=== PATIENT | male | born 1965 | race Caucasian/White ===

== ENCOUNTER 2020-03-20 01:52 | Inpatient (IN) | payer MEDICAID ==
[~2020-03-20] VITALS: Ht 195.6 cm; Wt 88.6 kg
--- NOTE | 2020-03-20 03:23 | NUR ---
PATIENT HIT CALL LIGHT. ASKED FOR WATER WITH ICE. WATER WITH ICE PROVIDED TO PATIENT. PATIENT GIVEN WARM BLANKETS. LIGHTS DIMMED. CALL LIGHT WITHIN REACH. NO NOTED ADDITIONAL NEEDS. WILL CONTINUE TO MONITOR.
[2020-03-20 03:55] VITALS: BP 156/92
[2020-03-20] MEDS ORDERED: VANCOMYCIN PER PHARMACY MC PRN (05:30)
[2020-03-20] MEDS: NICOTINE 14MG/24 HR PATCH.TD24 TD SCH (05:30)
[2020-03-20] MEDS ORDERED: ONDANSETRON 2MG/ML, 2ML IVPush PRN (05:30)
[2020-03-20] MEDS ORDERED: LABETALOL 5MG/ML, 20ML IVPush PRN (05:30)
[2020-03-20] MEDS ORDERED: GABAPENTIN 300 MG CAPSULE PO PRN (05:30)
[2020-03-20 05:49] VITALS: BP 129/95
[2020-03-20] MEDS ORDERED: PHARMACOKINETIC MONITORING MC PRN ×2 (06:00→08:00)
[2020-03-20] MEDS: PIPERACILLIN/TAZO/PMX 3.375GM 50 ML IV SCH ×3 (06:22→18:12)
[2020-03-20] MEDS: morphine SULFATE 10 MG/ML, 1ML IVPush PRN ×2 (06:23→19:42)
[2020-03-20] MEDS: ENOXAPARIN 40 MG/0.4 ML SQ SCH (06:26)
[2020-03-20] MEDS: POTASSIUM CHLORIDE 20 MEQ, MAGNESIUM SULFATE 2 GM, THIAMINE 200 MG, MVI ADULT 10 ML, FO... IV SCH (07:09)
[2020-03-20 07:27] VITALS: BP 130/73
[2020-03-20] MEDS ORDERED: PHARMACOKINETIC CONSULTATION MC ONE (07:30)
[2020-03-20] MEDS ORDERED: VANCOMYCIN 1,600 MG in SODIUM CHLORIDE 0.9% 250 ML IV ONE (07:30)
[2020-03-20 08:49] LABS: BASOPHILS # (AUTO) 0.01 x10^3/uL (0-0.1); BASOPHILS % (AUTO) 0 % (0-1); EOSINOPHILS # (AUTO) 0.01 x10^3/uL (0-0.4); EOSINOPHILS % (AUTO) 0 % (1-7); LYMPHOCYTES # (AUTO) 0.72 x10^3/uL (1-3.4); LYMPHOCYTES % (AUTO) 7 % (22-44); MD NO; MEAN CORPUSCULAR HEMOGLOBIN 34.5 pg (27.5-34.5); MEAN CORPUSCULAR HGB CONC 32.7 g/dL (33.2-36.2); MEAN PLATELET VOLUME 8.9 fL (7.4-10.4); MONOCYTES # (AUTO) 0.45 x10^3/uL (0.2-0.8); MONOCYTES % (AUTO) 5 % (2-9); NEUTROPHILS # (AUTO) 8.51 x10^3/uL (1.8-6.8); NEUTROPHILS % (AUTO) 88 % (42-75); PLATELET COUNT 138 x10^3/uL (130-400); RED BLOOD COUNT 3.47 x10^6/uL (4.38-5.82); RED CELL DISTRIBUTION WIDTH 13.4 % (9.4-14.8)
[2020-03-20 08:51] LABS: HCT (SEDRATE) 36.6 % (39.2-51.8)
[2020-03-20 09:00] LABS: ALBUMIN 2.2 g/dL (3.4-5.0); ANION GAP 4 mmol/L (5-15); CALCIUM 7.7 mg/dL (8.5-10.1); CHLORIDE 98 mmol/L (98-107); CREATININE 0.75 mg/dL (0.7-1.3)
[2020-03-20 09:08] LABS: D-DIMER 6.82 ug/mlFEU (0.00-0.52); INTERNATIONAL NORMALIZED RATIO 1.35 (0.93-1.1); PROTHROMBIN TIME 14.4 Seconds (9.6-11.5)
[2020-03-20 09:19] LABS: ALANINE AMINOTRANSFERASE 2032 U/L (12-78); ALKALINE PHOSPHATASE 97 U/L (45-117); BILIRUBIN,TOTAL 0.9 mg/dL (0.2-1.0); TOTAL PROTEIN 6.2 g/dL (6.4-8.2)
[2020-03-20 13:21] VITALS: BP 119/74
[2020-03-20 18:43] VITALS: BP 123/80
[2020-03-20] MEDS ORDERED: CHLORDIAZEPOXIDE 25 MG CAPSULE PO PRN (19:30)
[2020-03-20] MEDS ORDERED: LORazepam 2 MG/ML, 1ML IVPush PRN (19:30)
[2020-03-20] MEDS: VANCOMYCIN 1,600 MG in SODIUM CHLORIDE 0.9% 250 ML IV SCH (22:11)
[2020-03-21] MEDS: PIPERACILLIN/TAZO/PMX 3.375GM 50 ML IV SCH ×4 (00:17→20:34)
[2020-03-21 00:24] VITALS: BP 123/70
[2020-03-21] MEDS: morphine SULFATE 10 MG/ML, 1ML IVPush PRN ×4 (03:57→20:41)
[2020-03-21] MEDS: NICOTINE 14MG/24 HR PATCH.TD24 TD SCH (03:59)
[2020-03-21] MEDS: ENOXAPARIN 40 MG/0.4 ML SQ SCH (06:02)
[2020-03-21 06:49] VITALS: BP 109/75
[2020-03-21] MEDS: POTASSIUM CHLORIDE 20 MEQ, MAGNESIUM SULFATE 2 GM, THIAMINE 200 MG, MVI ADULT 10 ML, FO... IV SCH (09:40)
[2020-03-21 10:49] LABS: CREATININE 0.79 mg/dL (0.7-1.3)
[2020-03-21] MEDS: VANCOMYCIN 1,600 MG in SODIUM CHLORIDE 0.9% 250 ML IV SCH ×2 (11:11→23:32)
[2020-03-21 13:24] VITALS: BP 112/80
[2020-03-21 18:52] VITALS: BP 113/75
[2020-03-22] MEDS: morphine SULFATE 10 MG/ML, 1ML IVPush PRN ×4 (00:55→21:24)
[2020-03-22 01:22] VITALS: BP 120/81
[2020-03-22] MEDS: PIPERACILLIN/TAZO/PMX 3.375GM 50 ML IV SCH ×4 (02:12→22:39)
[2020-03-22] MEDS: NICOTINE 14MG/24 HR PATCH.TD24 TD SCH (05:30)
[2020-03-22 05:52] LABS: CREATININE 0.76 mg/dL (0.7-1.3)
[2020-03-22] MEDS: ENOXAPARIN 40 MG/0.4 ML SQ SCH (06:14)
[2020-03-22 08:06] VITALS: BP 122/77
[2020-03-22 08:33] LABS: ALBUMIN 2.1 g/dL (3.4-5.0); ANION GAP 7 mmol/L (5-15); CALCIUM 8.6 mg/dL (8.5-10.1); CHLORIDE 105 mmol/L (98-107)
[2020-03-22 08:48] LABS: BASOPHILS # (AUTO) 0.03 x10^3/uL (0-0.1); BASOPHILS % (AUTO) 1 % (0-1); EOSINOPHILS % (AUTO) 4 % (1-7); HEMOGRAM NOTE RECHECKED; LYMPHOCYTES # (AUTO) 1.03 x10^3/uL (1-3.4); LYMPHOCYTES % (AUTO) 20 % (22-44); MD NO; MEAN CORPUSCULAR HEMOGLOBIN 34.5 pg (27.5-34.5); MEAN CORPUSCULAR HGB CONC 32.4 g/dL (33.2-36.2); MEAN PLATELET VOLUME 9.3 fL (7.4-10.4); MONOCYTES # (AUTO) 0.79 x10^3/uL (0.2-0.8); MONOCYTES % (AUTO) 15 % (2-9); NEUTROPHILS # (AUTO) 3.16 x10^3/uL (1.8-6.8); NEUTROPHILS % (AUTO) 61 % (42-75); PLATELET COUNT 187 x10^3/uL (130-400); RED CELL DISTRIBUTION WIDTH 13.7 % (9.4-14.8)
[2020-03-22 09:01] LABS: ALANINE AMINOTRANSFERASE 831 U/L (12-78); ALKALINE PHOSPHATASE 118 U/L (45-117); BILIRUBIN,TOTAL 0.6 mg/dL (0.2-1.0); CREATININE 0.82 mg/dL (0.7-1.3); TOTAL PROTEIN 5.8 g/dL (6.4-8.2)
[2020-03-22] MEDS: VANCOMYCIN 1,600 MG in SODIUM CHLORIDE 0.9% 250 ML IV SCH ×2 (11:07→23:32)
[2020-03-22 13:25] VITALS: BP 111/68
[2020-03-22] MEDS: POTASSIUM CHLORIDE 20 MEQ, MAGNESIUM SULFATE 2 GM, THIAMINE 200 MG, MVI ADULT 10 ML, FO... IV SCH (15:03)
[2020-03-22 20:52] VITALS: BP 106/66
[2020-03-22] MEDS: THIAMINE 100MG TABLET PO SCH (21:23)
[2020-03-23 00:29] VITALS: BP 124/74
[2020-03-23 04:57] LABS: CHLORIDE 104 mmol/L (98-107)
[2020-03-23 05:10] LABS: % IRON SATURATION 38 % (20-55); ALANINE AMINOTRANSFERASE 573 U/L (12-78); ALBUMIN 2.2 g/dL (3.4-5.0); ALKALINE PHOSPHATASE 122 U/L (45-117); ANION GAP 6 mmol/L (5-15); BILIRUBIN,TOTAL 0.5 mg/dL (0.2-1.0); CALCIUM 8.7 mg/dL (8.5-10.1); CREATINE KINASE, TOTAL 15 U/L (39-308); CREATININE 0.89 mg/dL (0.7-1.3); IRON LEVEL 110 mcg/dL (65-175); TOTAL IRON BINDING CAPACITY 289 mcg/dL (250-450)
[2020-03-23] MEDS: NICOTINE 14MG/24 HR PATCH.TD24 TD SCH (05:13)
[2020-03-23 05:21] LABS: BASOPHILS # (AUTO) 0.03 x10^3/uL (0-0.1); BASOPHILS % (AUTO) 1 % (0-1); EOSINOPHILS # (AUTO) 0.28 x10^3/uL (0-0.4); EOSINOPHILS % (AUTO) 5 % (1-7); LYMPHOCYTES # (AUTO) 1.33 x10^3/uL (1-3.4); LYMPHOCYTES % (AUTO) 24 % (22-44); MD NO; MEAN CORPUSCULAR HEMOGLOBIN 33.8 pg (27.5-34.5); MEAN CORPUSCULAR HGB CONC 31.9 g/dL (33.2-36.2); MEAN PLATELET VOLUME 8.8 fL (7.4-10.4); MONOCYTES % (AUTO) 20 % (2-9); NEUTROPHILS # (AUTO) 2.87 x10^3/uL (1.8-6.8); NEUTROPHILS % (AUTO) 51 % (42-75); PLATELET COUNT 205 x10^3/uL (130-400); RED CELL DISTRIBUTION WIDTH 13.9 % (9.4-14.8)
[2020-03-23] MEDS: morphine SULFATE 10 MG/ML, 1ML IVPush PRN ×3 (05:40→20:18)
[2020-03-23] MEDS: PIPERACILLIN/TAZO/PMX 3.375GM 50 ML IV SCH ×3 (05:40→18:16)
[2020-03-23] MEDS: ENOXAPARIN 40 MG/0.4 ML SQ SCH (05:40)
[2020-03-23 06:57] VITALS: BP 143/86
[2020-03-23] MEDS: THIAMINE 100MG TABLET PO SCH ×2 (09:14→20:14)
[2020-03-23] MEDS: FOLIC ACID 1 MG TABLET PO SCH (09:14)
[2020-03-23] MEDS: MULTIVITAMIN 1 TABLET PO SCH (09:14)
[2020-03-23] MEDS: VANCOMYCIN 1,600 MG in SODIUM CHLORIDE 0.9% 250 ML IV SCH ×2 (11:23→23:26)
[2020-03-23 13:23] VITALS: BP 144/80
[2020-03-23] MEDS ORDERED: OMNIPAQUE 350 MG/ML, 100ML BOTTLE ONE (18:09)
[2020-03-23 20:13] VITALS: BP 114/81
[2020-03-24] MEDS: morphine SULFATE 10 MG/ML, 1ML IVPush PRN ×2 (01:00→06:36)
[2020-03-24] MEDS: PIPERACILLIN/TAZO/PMX 3.375GM 50 ML IV SCH ×2 (01:00→06:35)
[2020-03-24 01:51] VITALS: BP 130/78
[2020-03-24 04:28] LABS: BASOPHILS # (AUTO) 0.04 x10^3/uL (0-0.1); BASOPHILS % (AUTO) 1 % (0-1); EOSINOPHILS # (AUTO) 0.36 x10^3/uL (0-0.4); EOSINOPHILS % (AUTO) 6 % (1-7); LYMPHOCYTES # (AUTO) 1.53 x10^3/uL (1-3.4); LYMPHOCYTES % (AUTO) 24 % (22-44); MD NO; MEAN CORPUSCULAR HEMOGLOBIN 34.3 pg (27.5-34.5); MEAN CORPUSCULAR HGB CONC 32.6 g/dL (33.2-36.2); MEAN PLATELET VOLUME 8.5 fL (7.4-10.4); MONOCYTES # (AUTO) 1.21 x10^3/uL (0.2-0.8); MONOCYTES % (AUTO) 19 % (2-9); NEUTROPHILS # (AUTO) 3.14 x10^3/uL (1.8-6.8); NEUTROPHILS % (AUTO) 50 % (42-75); PLATELET COUNT 246 x10^3/uL (130-400); RED BLOOD COUNT 3.83 x10^6/uL (4.38-5.82)
[2020-03-24 04:29] LABS: ANION GAP 7 mmol/L (5-15); CHLORIDE 100 mmol/L (98-107)
[2020-03-24 04:31] LABS: CREATININE 0.89 mg/dL (0.7-1.3)
[2020-03-24] MEDS: NICOTINE 14MG/24 HR PATCH.TD24 TD SCH (05:30)
[2020-03-24] MEDS: ENOXAPARIN 40 MG/0.4 ML SQ SCH (06:35)
[2020-03-24 07:53] VITALS: BP 122/73
[2020-03-24] MEDS: THIAMINE 100MG TABLET PO SCH (07:58)
[2020-03-24] MEDS: MULTIVITAMIN 1 TABLET PO SCH (07:58)
[2020-03-24] MEDS: FOLIC ACID 1 MG TABLET PO SCH (07:58)
[2020-03-24] MEDS ORDERED: MULT-449 PO (09:09)
[2020-03-24] MEDS ORDERED: THIA100T67 PO (09:09)
[2020-03-24] MEDS ORDERED: ACID1TAB7 PO (09:09)
[2020-03-24] MEDS ORDERED: FOLI-17 PO (09:09)
[2020-03-24] MEDS ORDERED: AMOX1TAB12 PO (09:09)
[2020-03-24] MEDS ORDERED: DOXY100T PO (09:09)
[2020-03-24] MEDS ORDERED: AMOXICILLIN/CLAV 875-125MG TABLET PO SCH (09:30)
[2020-03-24] MEDS ORDERED: DOXYCYCLINE 100MG TABLET PO SCH (09:30)
[2020-03-24] MEDS ORDERED: LACTOBACILLUS CHEW TABLET PO SCH (12:00)
== END 2020-03-24 09:38 | disposition home or self-care (01) | DRG 871 ==
LOC: ED 02:13 → EDIP 03:42 → 3N 03:50 → 4NW 05:39 → 4EST 03-21 17:45 → 4WST 03-23 16:01
PROVIDERS: ADMIT Family Medicine; ATTEND Internal Medicine
DX: A41.9 Sepsis, unspecified organism (principal); J18.9 Pneumonia, unspecified organism; L03.115 Cellulitis of right lower limb; E87.1 Hypo-osmolality and hyponatremia; D68.9 Coagulation defect, unspecified; C34.90 Malignant neoplasm of unspecified part of unspecified bronchus or lung; L03.114 Cellulitis of left upper limb; Z20.828 Contact with and (suspected) exposure to other viral communicable diseases; B18.2 Chronic viral hepatitis C; D53.9 Nutritional anemia, unspecified; S61.217A Laceration without foreign body of left little finger without damage to nail, initial encounter; F10.20 Alcohol dependence, uncomplicated; K70.10 Alcoholic hepatitis without ascites; F12.10 Cannabis abuse, uncomplicated; F15.10 Other stimulant abuse, uncomplicated; F17.210 Nicotine dependence, cigarettes, uncomplicated; Z80.1 Family history of malignant neoplasm of trachea, bronchus and lung; Z85.118 Personal history of other malignant neoplasm of bronchus and lung; W22.09XA Striking against other stationary object, initial encounter; Y93.89 Activity, other specified; Y92.89 Other specified places as the place of occurrence of the external cause; Y99.8 Other external cause status
CPT/HCPCS: 36415; 84145; 96374; 99285; J7042; 76700; 80048; 80053; 80074; 80202; 82140; 82550; 82565; 82607; 82728; 83540; 83550; 83735; 84100; 84443; 85025; 85379; 85610; 85651; 86140; 87040; 87521; 87635; G0378; J1650; J2543; J3370; J3411; J3475; J3480; Q9967; J2270; J7050

== ENCOUNTER 2021-04-25 13:30 | Inpatient (IN) | payer MEDICAID ==
[~2021-04-25] VITALS: Ht 195.6 cm; Wt 92.7 kg
[~2021-04-25 13:30] MED LIST: ACID1TAB7 PO; AMOX1TAB12 PO; DOXY100T PO; FOLI1TAB32 PO; MULT-449 PO; THIA100T67 PO
[2021-04-25] MEDS ORDERED: ONDANSETRON 2MG/ML, 2ML IVPush ONE (14:00)
[2021-04-25] MEDS ORDERED: PIPERACILLIN/TAZO 4.5 GM in SODIUM CHLORIDE 0.9% 100 ML IVPB ONE (14:00)
[2021-04-25] MEDS ORDERED: VANCOMYCIN 1,900 MG in SODIUM CHLORIDE 0.9% 250 ML IV ONE (14:00)
[2021-04-25] MEDS ORDERED: SODIUM CHLORIDE FLUSH 10ML SYR IVF ONE (14:00)
[2021-04-25] MEDS ORDERED: MORPHINE SULFATE 4 MG/ML, 1ML IV PRN (14:00)
[2021-04-25] MEDS ORDERED: PLEASE ENTER HEIGHT AND WEIGHT MC SCH (14:00)
[2021-04-25] MEDS ORDERED: VANCOMYCIN PER PHARMACY MC ONE (14:00)
--- NOTE | 2021-04-25 14:00 | NUR ---
LATE ENTRY FOR 1400 D/T PATIENT CARE: PT ARRIVES TO ED VIA EMS WITH C/O "SPIDER BITE" 6 DAYS AGO, ERYTHEMA TRACKING UP RIGHT LEG, RIGHT LEG EDEMATOUS ALL MONITORS IN PLACE. BLANKET PROVIDED. EDMD SAHM AT BEDSIDE.
[2021-04-25 14:12] LABS: MEAN CORPUSCULAR HEMOGLOBIN 34.5 pg (27.5-34.5); MEAN CORPUSCULAR HGB CONC 34.2 g/dL (33.2-36.2); MEAN PLATELET VOLUME 8.4 fL (7.4-10.4); PLATELET COUNT 203 x10^3/uL (130-400); RED BLOOD COUNT 4.08 x10^6/uL (4.38-5.82); RED CELL DISTRIBUTION WIDTH 15.1 % (9.4-14.8)
[2021-04-25 14:22] LABS: ALANINE AMINOTRANSFERASE 36 U/L (12-78); ALBUMIN 2.5 g/dL (3.4-5.0); ANION GAP 12 mmol/L (5-15); CALCIUM 8.4 mg/dL (8.5-10.1); CHLORIDE 92 mmol/L (98-107); CREATININE 0.95 mg/dL (0.7-1.3)
[2021-04-25 14:24] LABS: ALKALINE PHOSPHATASE 70 U/L (45-117); BILIRUBIN,TOTAL 0.5 mg/dL (0.2-1.0); TOTAL PROTEIN 7.5 g/dL (6.4-8.2)
[2021-04-25 14:56] LABS: BASOS#(MANUAL) 0.15 x10^3/uL (0-0.1); BASOS% (MANUAL) 1 % (0-1); LYMPH#(MANUAL) 0.44 x10^3/uL (1-3.4); LYMPHS% (MANUAL) 3 % (22-44); MONOS#(MANUAL) 0.58 x10^3/uL (0.3-2.7); MONOS% (MANUAL) 4 % (2-9)
[2021-04-25 14:58] LABS: ANISOCYTOSIS 1+; BAND#(MANUAL) 2.19 x10^3/uL; BANDS%(MANUAL) 15 % (0-7); SEG#(MANUAL) 11.24 x10^3/uL (1.8-6.8); SEGS% (MANUAL) 77 % (42-75)
[2021-04-25 14:59] LABS: <PLATELET ESTIMATE> ADEQUATE; <PLT MORPHOLOGY> NORMAL PLT MORPH
--- NOTE | 2021-04-25 15:15 | NUR ---
late entry for 1525: report to break KATHLEEN Morris.
[2021-04-25] MEDS ORDERED: SODIUM CHLORIDE 0.9% 1,000 ML IV ONE (15:30)
[2021-04-25] MEDS ORDERED: SODIUM CHLORIDE FLUSH 10ML SYR IVF PRN (15:30)
--- NOTE | 2021-04-25 15:45 | NUR ---
report taken from kevin Morris, this RN resuming care.
[2021-04-25] MEDS ORDERED: ONDANSETRON 2MG/ML, 2ML ONE (16:47)
[2021-04-25] MEDS ORDERED: MORPHINE SULFATE 4 MG/ML, 1ML ONE (16:48)
--- NOTE | 2021-04-25 16:58 | NUR ---
pt requested morphine for 10/10 leg pain that had worsened during ED visit. morphine and zofran admin per emar, pt tolerated well. oxygen applied at 2L/min via NC following administration as pt's baseline oxygen level is low 90%s. pt a&o, resps even and unlabored. cms intact to right lower ext. vanco infusion completed via IV pump. zosyn not in ed omnicell, requested from pharmacy.
--- NOTE | 2021-04-25 18:15 | NUR ---
PT REPORTS PAIN SATISFACTORY AT LEVEL 3/10. RIGHT LEG ELEVATED ON PILLOWS. PT IS A&O, RESPS EVEN AND UNLABORED, NADN. PT HAS NO COMPLAINT AT THIS TIME.
--- NOTE | 2021-04-25 18:46 | NUR ---
report given to KATHLEEN Spaulding, pt awaiting transport to [facility] at this time.
--- NOTE | 2021-04-25 18:55 | NUR ---
report to ED RN Rocío who is assuming ED care as pt awaits transport to floor.
[2021-04-25 19:21] VITALS: BP 141/82
[2021-04-25 19:49] VITALS: BP 141/82
[2021-04-25] MEDS ORDERED: hydrALAzine 20 MG/ML, 1ML IVPush PRN (20:00)
[2021-04-25] MEDS ORDERED: POLYETHYLENE GLYCOL 17 GM PACKET PO PRN (20:00)
[2021-04-25] MEDS ORDERED: ONDANSETRON ODT 4 MG PO PRN (20:00)
[2021-04-25] MEDS ORDERED: VANCOMYCIN PER PHARMACY MC PRN (20:00)
[2021-04-25] MEDS ORDERED: GABAPENTIN 300 MG CAPSULE PO PRN (20:00)
[2021-04-25] MEDS ORDERED: morphine SULFATE 10 MG/ML, 1ML IVPush PRN (20:00)
[2021-04-25] MEDS ORDERED: DOCUSATE 100 MG CAPSULE PO PRN (20:00)
[2021-04-25] MEDS ORDERED: MELATONIN 5 MG TABLET PO PRN (20:00)
[2021-04-25] MEDS ORDERED: BISACODYL 10 MG SUPP PR PRN (20:00)
[2021-04-25] MEDS ORDERED: LORazepam 2 MG/ML, 1ML IV PRN ×4 (20:30)
[2021-04-25] MEDS ORDERED: THIAMINE 200 MG in DEXTROSE 5% 50 ML IVPB ONE (20:30)
[2021-04-25] MEDS ORDERED: LORazepam 1MG TABLET PO PRN (20:30)
[2021-04-25] MEDS ORDERED: PHARMACOKINETIC MONITORING MC PRN (21:00)
[2021-04-25] MEDS ORDERED: OMNIPAQUE 350 MG/ML, 100ML BOTTLE ONE (21:00)
[2021-04-25] MEDS ORDERED: PHARMACOKINETIC CONSULTATION MC ONE (21:00)
[2021-04-25] MEDS: HEPARIN 5,000 UNITS/ML, 1ML SQ SCH (21:41)
[2021-04-25] MEDS: MAGNESIUM CHLORIDE 64 MG TABLET.DR PO SCH (21:41)
[2021-04-25] MEDS: ACETAMINOPHEN 325 MG TABLET PO PRN (21:41)
[2021-04-25] MEDS: OXYcodone IR 5MG TABLET PO PRN (21:41)
[2021-04-25] MEDS: AMPICILLIN/SULBACTAM 3 GM in SODIUM CHLORIDE 0.9% 100 ML IV SCH (21:43)
[2021-04-25] MEDS: LORazepam 2 MG/ML, 1ML IV PRN (21:54)
[2021-04-25] MEDS: LACTATED RINGERS 1,000 ML IV SCH (21:54)
[2021-04-25 22:00] LABS: MICROSCOPIC INDICATED
[2021-04-25] MEDS: ONDANSETRON 2MG/ML, 2ML IVPush PRN (23:21)
[2021-04-26 00:26] VITALS: BP 120/77
[2021-04-26] MEDS: VANCOMYCIN 1,700 MG in SODIUM CHLORIDE 0.9% 250 ML IV SCH ×2 (02:09→15:31)
[2021-04-26] MEDS: AMPICILLIN/SULBACTAM 3 GM in SODIUM CHLORIDE 0.9% 100 ML IV SCH ×4 (03:21→20:51)
[2021-04-26] MEDS: ACETAMINOPHEN 325 MG TABLET PO PRN (03:25)
[2021-04-26 04:05] LABS: MEAN CORPUSCULAR HEMOGLOBIN 34.2 pg (27.5-34.5); MEAN CORPUSCULAR HGB CONC 33.9 g/dL (33.2-36.2); MEAN PLATELET VOLUME 8.6 fL (7.4-10.4); PLATELET COUNT 180 x10^3/uL (130-400); RED BLOOD COUNT 3.89 x10^6/uL (4.38-5.82); RED CELL DISTRIBUTION WIDTH 15.2 % (9.4-14.8)
[2021-04-26 04:07] LABS: HCT (SEDRATE) 39.6 % (39.2-51.8)
[2021-04-26 04:17] LABS: CHLORIDE 91 mmol/L (98-107)
[2021-04-26 04:33] LABS: <PLATELET ESTIMATE> ADEQUATE; ANISOCYTOSIS 1+; BANDS%(MANUAL) 20 % (0-7); LYMPH#(MANUAL) 1.75 x10^3/uL (1-3.4); LYMPHS% (MANUAL) 14 % (22-44); MONOS#(MANUAL) 1.38 x10^3/uL (0.3-2.7); MONOS% (MANUAL) 11 % (2-9); SEG#(MANUAL) 6.88 x10^3/uL (1.8-6.8); SEGS% (MANUAL) 55 % (42-75)
[2021-04-26 04:34] LABS: ALANINE AMINOTRANSFERASE 29 U/L (12-78); ALBUMIN 1.9 g/dL (3.4-5.0); ALKALINE PHOSPHATASE 62 U/L (45-117); ANION GAP 4 mmol/L (5-15); BILIRUBIN,TOTAL 0.6 mg/dL (0.2-1.0); CHOL/HDL RATIO 3.7; CHOLESTEROL, TOTAL 127 mg/dL (140-239); CREATININE 0.74 mg/dL (0.7-1.3); HDL CHOL % 27 % (26-37); HDL CHOLESTEROL (DIRECT) 34 mg/dL (40-60); LDL CHOLESTEROL,CALCULATED 78 mg/dL (54-169); LDL/HDL RATIO 2.3 (0.5-3.0); PMNS WITH VACUOLES 1+; TOTAL PROTEIN 6.7 g/dL (6.4-8.2); TOXIC GRAN 1+; TRIGLYCERIDES 74 mg/dL (50-200); VLDL CHOLESTEROL 15 mg/dL (0-25)
[2021-04-26] MEDS: HEPARIN 5,000 UNITS/ML, 1ML SQ SCH ×3 (05:04→20:46)
[2021-04-26] MEDS: LORazepam 2 MG/ML, 1ML IV PRN (05:04)
[2021-04-26] MEDS: ONDANSETRON 2MG/ML, 2ML IVPush PRN (05:04)
[2021-04-26 07:23] VITALS: BP 125/84
[2021-04-26] MEDS ORDERED: POTASSIUM PHOSPHATE 44 MEQ in SODIUM CHLORIDE 0.9% 500 ML IV ONE (09:00)
[2021-04-26] MEDS: MULTIVITAMINS/MINERALS TABLET PO SCH (09:57)
[2021-04-26] MEDS: MAGNESIUM CHLORIDE 64 MG TABLET.DR PO SCH ×3 (09:57→20:46)
[2021-04-26] MEDS: PANTOPRAZOLE 40MG TABLET PO SCH (09:58)
[2021-04-26] MEDS: LORazepam 1MG TABLET PO SCH ×3 (09:58→20:46)
[2021-04-26] MEDS: LACTATED RINGERS 1,000 ML IV SCH ×2 (10:02→20:51)
[2021-04-26 12:25] VITALS: BP 124/76
[2021-04-26] MEDS: OXYcodone IR 5MG TABLET PO PRN (15:24)
[2021-04-26 18:42] VITALS: BP 107/72
[2021-04-27 00:44] VITALS: BP 119/78
[2021-04-27] MEDS: VANCOMYCIN 1,700 MG in SODIUM CHLORIDE 0.9% 250 ML IV SCH (02:11)
[2021-04-27 02:13] LABS: BASOPHILS % (AUTO) 1 % (0-1); EOSINOPHILS % (AUTO) 0 % (1-7); LYMPHOCYTES % (AUTO) 8 % (22-44); MEAN CORPUSCULAR HEMOGLOBIN 34.2 pg (27.5-34.5); MEAN CORPUSCULAR HGB CONC 33.5 g/dL (33.2-36.2); MEAN PLATELET VOLUME 9.1 fL (7.4-10.4); MONOCYTES % (AUTO) 9 % (2-9); NEUTROPHILS % (AUTO) 83 % (42-75); PLATELET COUNT 164 x10^3/uL (130-400); RED BLOOD COUNT 3.63 x10^6/uL (4.38-5.82); RED CELL DISTRIBUTION WIDTH 15.3 % (9.4-14.8)
[2021-04-27 02:16] LABS: ALANINE AMINOTRANSFERASE 115 U/L (12-78); ALBUMIN 1.5 g/dL (3.4-5.0); ANION GAP 3 mmol/L (5-15); CALCIUM 7.8 mg/dL (8.5-10.1); CHLORIDE 98 mmol/L (98-107); CREATININE 0.73 mg/dL (0.7-1.3)
[2021-04-27 02:19] LABS: ALKALINE PHOSPHATASE 78 U/L (45-117); BILIRUBIN,TOTAL 0.5 mg/dL (0.2-1.0); TOTAL PROTEIN 5.6 g/dL (6.4-8.2)
[2021-04-27] MEDS: AMPICILLIN/SULBACTAM 3 GM in SODIUM CHLORIDE 0.9% 100 ML IV SCH ×4 (03:51→20:42)
[2021-04-27] MEDS: LACTATED RINGERS 1,000 ML IV SCH ×2 (05:43→20:41)
[2021-04-27] MEDS: HEPARIN 5,000 UNITS/ML, 1ML SQ SCH ×3 (05:43→22:04)
[2021-04-27 07:26] VITALS: BP 129/77
[2021-04-27] MEDS: MAGNESIUM CHLORIDE 64 MG TABLET.DR PO SCH ×3 (08:22→20:42)
[2021-04-27] MEDS: MULTIVITAMINS/MINERALS TABLET PO SCH (08:22)
[2021-04-27] MEDS: PANTOPRAZOLE 40MG TABLET PO SCH (08:22)
[2021-04-27] MEDS: LORazepam 1MG TABLET PO SCH ×3 (08:22→20:42)
[2021-04-27] MEDS: ACETAMINOPHEN 325 MG TABLET PO PRN (08:50)
[2021-04-27] MEDS ORDERED: MAGNESIUM SULFATE PMX 4GM/100M 100 ML IVPB ONE (09:00)
[2021-04-27] MEDS ORDERED: POTASSIUM PHOSPHATE 22 MEQ in SODIUM CHLORIDE 0.9% 500 ML IV ONE (09:00)
[2021-04-27] MEDS: VANCOMYCIN 1,800 MG in SODIUM CHLORIDE 0.9% 250 ML IV SCH (12:32)
[2021-04-27] MEDS: OXYcodone IR 5MG TABLET PO PRN ×3 (12:38→22:05)
[2021-04-27 13:08] VITALS: BP 129/70
[2021-04-27 19:21] VITALS: BP 118/76
[2021-04-28] MEDS: VANCOMYCIN 1,800 MG in SODIUM CHLORIDE 0.9% 250 ML IV SCH ×2 (00:37→12:02)
[2021-04-28 01:10] VITALS: BP 114/69
[2021-04-28] MEDS: AMPICILLIN/SULBACTAM 3 GM in SODIUM CHLORIDE 0.9% 100 ML IV SCH ×4 (03:25→21:43)
[2021-04-28] MEDS: HEPARIN 5,000 UNITS/ML, 1ML SQ SCH ×3 (05:39→21:43)
[2021-04-28 06:38] LABS: HCT (SEDRATE) 38.9 % (39.2-51.8)
[2021-04-28 06:39] LABS: BASOPHILS % (AUTO) 1 % (0-1); EOSINOPHILS % (AUTO) 1 % (1-7); LYMPHOCYTES % (AUTO) 14 % (22-44); MEAN CORPUSCULAR HEMOGLOBIN 34.6 pg (27.5-34.5); MEAN CORPUSCULAR HGB CONC 33.5 g/dL (33.2-36.2); MEAN PLATELET VOLUME 8.8 fL (7.4-10.4); MONOCYTES % (AUTO) 13 % (2-9); NEUTROPHILS % (AUTO) 71 % (42-75); PLATELET COUNT 223 x10^3/uL (130-400); RED BLOOD COUNT 3.72 x10^6/uL (4.38-5.82); RED CELL DISTRIBUTION WIDTH 15.6 % (9.4-14.8)
[2021-04-28 06:57] LABS: CHLORIDE 100 mmol/L (98-107)
[2021-04-28 07:10] LABS: ANION GAP 2 mmol/L (5-15); CALCIUM 8.2 mg/dL (8.5-10.1); CREATININE 0.64 mg/dL (0.7-1.3)
[2021-04-28 07:39] VITALS: BP 129/76
[2021-04-28] MEDS: MULTIVITAMINS/MINERALS TABLET PO SCH (08:22)
[2021-04-28] MEDS: PANTOPRAZOLE 40MG TABLET PO SCH (08:22)
[2021-04-28] MEDS: MAGNESIUM CHLORIDE 64 MG TABLET.DR PO SCH ×2 (08:22→15:38)
[2021-04-28] MEDS: LORazepam 1MG TABLET PO SCH ×2 (08:22→15:38)
[2021-04-28] MEDS: LACTATED RINGERS 1,000 ML IV SCH ×2 (09:32→19:43)
[2021-04-28 13:38] VITALS: BP 137/88
[2021-04-28] MEDS: OXYcodone IR 5MG TABLET PO PRN ×2 (14:02→21:44)
[2021-04-28 18:54] VITALS: BP 128/75
[2021-04-28] MEDS: LORazepam 0.5MG TABLET PO SCH (21:44)
[2021-04-29 00:26] VITALS: BP 136/95
[2021-04-29] MEDS: AMPICILLIN/SULBACTAM 3 GM in SODIUM CHLORIDE 0.9% 100 ML IV SCH ×4 (03:32→20:23)
[2021-04-29] MEDS: HEPARIN 5,000 UNITS/ML, 1ML SQ SCH ×3 (05:59→20:24)
[2021-04-29 06:16] LABS: CHLORIDE 103 mmol/L (98-107)
[2021-04-29 06:21] LABS: ANION GAP 5 mmol/L (5-15); CALCIUM 8.4 mg/dL (8.5-10.1); CREATININE 0.67 mg/dL (0.7-1.3)
[2021-04-29 08:09] VITALS: BP 135/84
[2021-04-29] MEDS: LORazepam 0.5MG TABLET PO SCH ×3 (08:46→20:25)
[2021-04-29] MEDS: PANTOPRAZOLE 40MG TABLET PO SCH (08:46)
[2021-04-29] MEDS: MULTIVITAMINS/MINERALS TABLET PO SCH (08:46)
[2021-04-29] MEDS: LACTATED RINGERS 1,000 ML IV SCH ×2 (08:47→23:08)
[2021-04-29] MEDS: OXYcodone IR 5MG TABLET PO PRN ×2 (09:03→20:24)
[2021-04-29 13:05] VITALS: BP 138/79
[2021-04-29 19:39] VITALS: BP 147/80
[2021-04-29] MEDS ORDERED: NICOTINE 21 MG/24 HR PATCH.TD24 TD SCH (21:00)
[2021-04-30 01:09] VITALS: BP 105/60
[2021-04-30] MEDS: AMPICILLIN/SULBACTAM 3 GM in SODIUM CHLORIDE 0.9% 100 ML IV SCH ×3 (03:04→14:45)
[2021-04-30] MEDS: HEPARIN 5,000 UNITS/ML, 1ML SQ SCH ×2 (04:53→13:08)
[2021-04-30 05:22] LABS: MEAN CORPUSCULAR HEMOGLOBIN 34.7 pg (27.5-34.5); MEAN CORPUSCULAR HGB CONC 33.7 g/dL (33.2-36.2); MEAN PLATELET VOLUME 8.1 fL (7.4-10.4); PLATELET COUNT 393 x10^3/uL (130-400); RED CELL DISTRIBUTION WIDTH 15.5 % (9.4-14.8)
[2021-04-30 05:33] LABS: ANION GAP 4 mmol/L (5-15); CALCIUM 8.3 mg/dL (8.5-10.1); CHLORIDE 103 mmol/L (98-107); CREATININE 0.76 mg/dL (0.7-1.3)
[2021-04-30 05:58] LABS: <PLATELET ESTIMATE> INCREASED; <PLT MORPHOLOGY> NORMAL PLT MORPH; ANISOCYTOSIS 1+; BAND#(MANUAL) 0.08 x10^3/uL; BANDS%(MANUAL) 1 % (0-7); EOS#(MANUAL) 0.23 x10^3/uL (0.0-0.4); EOS% (MANUAL) 3 % (1-7); LYMPH#(MANUAL) 2.05 x10^3/uL (1-3.4); LYMPHS% (MANUAL) 27 % (22-44); METAMYELOCYTES# (MANUAL) 0.08 x10^3/uL (0-0); METAMYELOCYTES% (MANUAL) 1 % (0-1); MONOS#(MANUAL) 0.53 x10^3/uL (0.3-2.7); MONOS% (MANUAL) 7 % (2-9); MYELOCYTES# (MANUAL) 0.08 x10^3/uL (0-0); MYELOCYTES% (MANUAL) 1 % (0-0); PMNS WITH VACUOLES 1+; REACTIVE LYMPHS % (MANUAL) 4 % (0-0); SEG#(MANUAL) 4.26 x10^3/uL (1.8-6.8); SEGS% (MANUAL) 56 % (42-75)
[2021-04-30] MEDS: PANTOPRAZOLE 40MG TABLET PO SCH (08:36)
[2021-04-30] MEDS: MULTIVITAMINS/MINERALS TABLET PO SCH (08:36)
[2021-04-30] MEDS: LORazepam 0.5MG TABLET PO SCH ×2 (08:36→16:12)
[2021-04-30] MEDS: LORazepam 2 MG/ML, 1ML IV PRN (08:50)
[2021-04-30 08:52] VITALS: BP 149/88
[2021-04-30] MEDS: OXYcodone IR 5MG TABLET PO PRN ×2 (11:16→16:14)
[2021-04-30] MEDS: LACTATED RINGERS 1,000 ML IV SCH (11:35)
[2021-04-30] MEDS ORDERED: OXYC5TAB98 PO (11:51)
[2021-04-30] MEDS ORDERED: LORA-445 PO (11:51)
[2021-04-30] MEDS ORDERED: POLY17PO5 PO (11:51)
[2021-04-30] MEDS ORDERED: ACET325T26 PO (11:51)
[2021-04-30] MEDS ORDERED: DOCU-131 PO (11:51)
[2021-04-30] MEDS ORDERED: GABA300C PO (11:51)
[2021-04-30] MEDS ORDERED: PANT40TA6 PO (11:51)
[2021-04-30] MEDS ORDERED: AMPI3VIA IV (12:43)
[2021-04-30 14:50] VITALS: BP 127/72
== END 2021-04-30 16:45 | DRG 872 ==
LOC: ED 14:58 → EDIP 15:05 → 4EST 19:12
PROVIDERS: ADMIT Hospitalist; ATTEND Internal Medicine
DX: A40.0 Sepsis due to streptococcus, group A (principal); E44.0 Moderate protein-calorie malnutrition; E87.1 Hypo-osmolality and hyponatremia; E87.2 Acidosis; L03.115 Cellulitis of right lower limb; L03.116 Cellulitis of left lower limb; B18.2 Chronic viral hepatitis C; E83.39 Other disorders of phosphorus metabolism; F10.20 Alcohol dependence, uncomplicated; F17.210 Nicotine dependence, cigarettes, uncomplicated; G62.9 Polyneuropathy, unspecified; R65.20 Severe sepsis without septic shock; T63.301A Toxic effect of unspecified spider venom, accidental (unintentional), initial encounter; Z59.0 Homelessness; Z63.8 Other specified problems related to primary support group; Z79.899 Other long term (current) drug therapy; Z85.118 Personal history of other malignant neoplasm of bronchus and lung; Z90.2 Acquired absence of lung [part of]; Y92.89 Other specified places as the place of occurrence of the external cause; Z68.24 Body mass index [BMI] 24.0-24.9, adult
CPT/HCPCS: 36415; 71046; 80048; 80053; 80061; 80202; 81001; 83036; 83605; 83735; 84100; 84443; 85025; 85651; 86140; 86704; 86705; 86706; 86707; 86803; 87040; 87086; 87147; 87181; 87340; 87350; 93306; 93356; 96374; 96375; 99285; G0378; J0295; J1644; J2405; J2543; J3370; J3411; Q9967; J2060; J2270; J3475; J7030; J7040; J7050; J7120